=== PATIENT | male | born 1985 | race Caucasian/White ===

== ENCOUNTER 2021-02-20 17:28 | Emergency (ER) | payer BC ==
[~2021-02-20] VITALS: Ht 172.7 cm; Wt 106.6 kg
[~2021-02-20 17:28] MED LIST: CLINDAMYCIN HC150 MG PO; IBUPROFEN800 MG PO; NORCO 5-325 TA1 EACH PO
[2021-02-20] MEDS ORDERED: TYLENOL EXTRA500 MG PO (17:47)
[2021-02-20] MEDS ORDERED: HYDROCODON-ACE1 EA11 PO (19:41)
== END 2021-02-20 19:53 | disposition home or self-care (01) ==
LOC: ED 17:28
DX: N99.840 Postprocedural hematoma of a genitourinary system organ or structure following a genitourinary system procedure (principal); N50.89 Other specified disorders of the male genital organs
CPT/HCPCS: 99283; A9270

== ENCOUNTER 2022-06-05 18:23 | Emergency (ER) | payer OTHER ==
[~2022-06-05] VITALS: Ht 172.7 cm; Wt 106.6 kg
--- NOTE | ~2022-06-05 | EKG ---
[facility] [address] [facility] [place], [place] [address] Draft EKG completed, results pending confirmation PATIENT NAME: RAJESH LOPEZ Electrocardiogram DATE OF : 89 PHYSICIAN: PRELIMINARY REPORT #: [id number] REPORT IS CONFIDENTIAL AND NOT TO BE RELEASED WITHOUT AUTHORIZATION
[~2022-06-05 18:23] MED LIST changes: +HYDROCODON-ACE1 EA11 PO; +TYLENOL EXTRA500 MG PO
== END 2022-06-05 20:20 | disposition home or self-care (01) ==
LOC: ED 18:23
DX: R07.81 Pleurodynia (principal)
CPT/HCPCS: 36415; 71045; 80053; 83735; 84484; 85025; 85379; 93005; 93010; 96374; 99285-25; J1885

== ENCOUNTER 2025-02-27 21:54 | Emergency (ER) | payer OTHER | END 2025-02-27 22:39 | disposition home or self-care (01) | LOC: ED 21:54 | DX: K04.7 Periapical abscess without sinus (principal); F43.10 Post-traumatic stress disorder, unspecified; Z79.899 Other long term (current) drug therapy ==